=== PATIENT | female | born 1955 | race Caucasian/White ===

== ENCOUNTER → 2020-08-26 13:19 | Outpatient (CLI) | payer MEDICARE, OTHER, SELFPAY ==
[2020-08-26 14:16] LABS: COVID19 -Nasal RAPID Negative (Negative)
== END ==
PROVIDERS: PCP Specialist; Referring Provider Specialist; Visit Provider Specialist
DX: Z01.812 Encounter for preprocedural laboratory examination (principal); Z20.822 Contact with and (suspected) exposure to COVID-19
CPT/HCPCS: 87635

== ENCOUNTER 2020-08-27 06:30 | Day surgery (SDC) | payer MEDICARE, OTHER, SELFPAY ==
[2020-08-24 11:38] VITALS: BMI 23.8
[2020-08-27] VITALS (8 sets, daily range): BP systolic 113–129; BP diastolic 63–83; PULSE 59–78; RESP 10–20; TEMP 36.1–37; O2SAT 94–98; BMI 23.8
--- NOTE | 2020-08-27 | PATH_ITS ---
[facility] Accession Number: [id number] . 01 Material submitted: . endometrium - ENDOMETRIAL POLYP AND BIOPSY . 01 Clinical history: . SDC . 02 Diagnosis: Endometrial Polyp and Biopsy: Polypoid portions of endometrial tissue with features of cystic atrophy; negative for glandular hyperplasia, cytologic atypia, or malignancy. Portions of myometrial tissue; negative for atypia or malignancy. MRV 09/01/2020 1318 Local . 02 Electronically signed: . Stephani Cooper MD, Pathologist NPI- [id number] . 01 Gross description: . ENDOMETRIAL POLYP AND BIOPSY: Received in formalin are minute fragments of mucoid and hemorrhagic material measuring 2.0 x 1.4 x 0.3 cm in aggregate. Submitted in toto in 1 cassette. /KARO 08/28/2020 0708 Local . 02 Pathologist provided ICD-10: T83.721A, N95.0 . 02 CPT . 027089 Performed at: 01 [facility] [address], [place], [place] [id number] MD Beni Cooney MD Phone: [phone] Performed at: 02 [facility] [address] [place], [place] [id number] MD Lesley Riggs MD Phone: [phone]
[2020-08-27] MEDS: LACTATED RINGERS 1,000 ML 42 ML IV ×2 (06:59→08:56)
--- NOTE | 2020-08-27 07:20 | PM.PREOP ---
Pre-operative Note COVID-19 COVID-19 status: Negative Interval Note History & Physical reviewed/Exam performed by Physician: Yes Changes to H&P: No
--- NOTE | 2020-08-27 08:00 | SUR.OPER ---
Lithotomy on padded OR bed, head on pillow, arms secured on padded arm boards at <90 degrees abduction. Legs secured in padded yellow fins stirrups.
[2020-08-27] MEDS: CEFAZOLIN 1 GM VIAL 2 GM IV (08:14)
--- NOTE | 2020-08-27 08:30 | P.OP_ITS ---
Operative Date/Time/Diagnoses Date of procedure: 08/27/20 Time of procedure: 08:30 Pre-op diagnosis: Postmenopausal bleeding and erosion sling mesh in vagina Post-op diagnosis: same Procedure & Clinicians Procedure: Hysteroscopy with resection endometrial and endocervical polyp with endometrial curettage, removal eroded mesh and closing vaginal defect Same procedure as scheduled: Yes Indications: Postmenopausal bleeding, urethral sling mesh eroded into vagina Surgeon: Maricel Cruz Click Yes if Unassisted: Yes Anesthesia Type: General Operative Notes Findings: Normal exam under anesthesia with vaginal inclusion cysts in the right sidewall and fornix. Small area of urethral sling graft material exposed to the right midline. Endometrial polyp otherwise thin endometrium and small endocervi wilner polyp. Closure Type: primary Specimen(s): other (Endometrial polyp, endocervical polyp, endometrial curettings) Estimated Blood Loss (mL): 5 Blood products transfused: none Procedure in detail: The patient was brought to the operating room where she underwent general anesthesia. She was placed in low stirrups She was prepped and draped in usual sterile fashion with pulsatile stockings in place and functional, warming in place. 2 g of Ancef were given in of the case. Her bladder was drained with in and out catheter. A single-tooth tenaculum was placed on the anterior lip of the cervix and the uterus dilated to #8 Hegar dilator. The hysteroscope was placed into the uterus with a sorbitol solution running and under constant suction. The resecting loop set at 80 W of cutting was used to resect the polyp down to the level of the endometrium. A endometrial curettage was performed. An endocervical polyp was also removed with the resecting loop. The polyps and the endometrial curettage was sent to pathology. The sorbitol solution I=O approximately 500 mL. Next the exposed graft from her urethral sling procedure was removed with scissors. The vaginal tissue was freed from the remaining sling next to the exposure. The vaginal defect was closed with interrupted 2 0 Vicryl suture. Estimated blood loss less than 5 cc. Patient went to recovery room in good condition. Counts of instruments and sponges were correct. Complications: none Post-operative Condition: stable Disposition: same day surgery Plan for aftercare: Treatment and follow-up based on biopsy results.
[2020-08-27] MEDS: KETOROLAC 30 MG/ML VIAL IV (09:01)
== END 2020-08-27 09:25 | disposition home or self-care (01) ==
PROVIDERS: PCP Family Medicine; Referring Provider Specialist; Visit Provider Specialist
PROC: 0UDB8ZZ Extraction of Endometrium, Via Natural or Artificial Opening Endoscopic (ICD-10-PCS; CPT 58558; principal; 2020-08-27 07:45)
DX: N95.0 Postmenopausal bleeding (principal); T83.721A Exposure of implanted vaginal mesh into vagina, initial encounter; N89.8 Other specified noninflammatory disorders of vagina; N84.0 Polyp of corpus uteri; N84.1 Polyp of cervix uteri
CPT/HCPCS: 57295; 58558; J0690; J1100; J1885; J2405; J2704; J3010

== ENCOUNTER 2023-06-08 12:25 | Day surgery (SDC) | payer MEDICARE, OTHER, SELFPAY ==
--- NOTE | 2023-06-08 | PATH_ITS ---
[facility] Accession Number: [id number] No. of containers..01 Tissue . 01 Material submitted: . endometrium - ENDOMETRIAL CURETTING . 01 Diagnosis: ENDOMETRIUM, CURETTINGS: Sparse sample with strips of inactive glandular endometrium. Cervical tissue with reactive epithelial changes. No endometrioid intraepithelial neoplasia, cervical dysplasia or malignancy. MRV 06/14/2023 1413 Local . 01 Electronically signed: . Gladys Menendez MD, Pathologist NPI- [id number] . 01 Gross description: . ENDOMETRIAL CURETTING: Received in formalin are minute fragments of mucoid and hemorrhagic material measuring 1.0 x 1.0 x 0.2 cm in aggregate. Submitted in toto in 1 cassette. /AYALA 06/11/2023 1827 Local . 01 Pathologist provided ICD-10: N95.0 . 01 CPT . 222560 Specimen Comment: A courtesy copy of this report has been sent to [phone] Performed at: 01 [facility] [address] [place] [address], [place], [place] [id number] MD Beni Cooney MD Phone: [phone]
[2023-06-08 13:24] VITALS: BP 128/75; PULSE 76; RESP 16; TEMP 36.2; O2SAT 98; BMI 23.6
[2023-06-08 13:48] LABS: Hematocrit 41.6 % (36-46); Hemoglobin 14.1 g/dL (12.0-16.0); Mean Corpuscular HGB Conc 33.9 % (30-36); Mean Corpuscular Hemoglobin 29.7 PG (26-34); Mean Corpuscular Volume 87.5 fL (80-100); Platelet Count 207 X10^3/uL (150-400); Red Blood Cell Count 4.76 X10^6/uL (4.0-5.2); Red Cell Distribution Width 13.5 % (11.6-14.8); White Blood Cell Count 6.4 X10^3/uL (4.5-11.0)
[2023-06-08] MEDS: ACETAMINOPHEN IV 1,000 MG/100 ML VIAL 400 MG IV (13:58)
--- NOTE | 2023-06-08 14:34 | PM.PREOP ---
Pre-operative Note Interval Note History & Physical reviewed/Exam performed by Physician: Yes Changes to H&P: No
[2023-06-08 15:21] VITALS: BP 108/69; PULSE 71; RESP 15; TEMP 36.5; O2SAT 94
--- NOTE | 2023-06-08 15:23 | SUR.OPER ---
Lithotomy on padded OR bed, head on pillow, arms secured on padded arm boards at <90 degrees abduction. Legs secured in padded yellow fins stirrups.
--- NOTE | 2023-06-08 15:25 | PM.OP.1 ---
Operative Date/Time/Diagnoses Date of procedure: 06/08/23 Time of procedure: 15:25 Pre-op diagnosis: Postmenopausal bleeding Post-op diagnosis: same Procedure & Clinicians Procedure: Hysteroscopy D&C Same procedure as scheduled: Yes Indications: Postmenopausal bleeding Surgeon: Maricel Cruz Click Yes if Unassisted: Yes Anesthesia Type: Sedation Operative Notes Findings: Normal exam under anesthesia. Thin endometrium without any intrauterine pathology. Closure Type: not applicable Specimen(s): none sent (Uterine curettage) Estimated Blood Loss (mL): 5 Blood products transfused: none Procedure in detail: The patient was brought to the operating room where she underwent general anesthesia. She was placed in low stirrups She was prepped and draped in usual sterile fashion with pulsatile stockings in place and functional, warming in place . A single-tooth tenaculum was placed on the anterior lip of the cervix and the uterus dilated to #8 Hegar dilator. The hysteroscope was placed into the uterus with saline solution running. An endometrial curettage was performed. The endometrial curettage was sent to pathology. The patient went to recovery room in good condition counts of instruments and sponges were correct. Estimated blood loss less than 5 mL. Complications: none Post-operative Condition: stable Disposition: same day surgery Plan for aftercare: Home when awake and stable. Patient will be contacted with biopsy results.
[2023-06-08 15:26] VITALS: BP 113/74; PULSE 69; RESP 8; O2SAT 94
[2023-06-08 15:31] VITALS: BP 115/74; PULSE 67; RESP 18; O2SAT 95
[2023-06-08] MEDS: OXYCODONE IR 5 MG TABLET PO (15:35)
[2023-06-08 15:36] VITALS: BP 120/78; PULSE 74; RESP 15; O2SAT 96
[2023-06-08 15:41] VITALS: BP 120/78; PULSE 67; RESP 18; TEMP 36.6; O2SAT 97
== END 2023-06-08 16:00 | disposition home or self-care (01) ==
PROVIDERS: Student in an Organized Health Care Education/Training Program; PCP Family Medicine; Referring Provider Specialist; Visit Provider Specialist
PROC: 0UDB8ZZ Extraction of Endometrium, Via Natural or Artificial Opening Endoscopic (ICD-10-PCS; CPT 58558; principal; 2023-06-08 13:30)
DX: N95.0 Postmenopausal bleeding (principal); I48.91 Unspecified atrial fibrillation
CPT/HCPCS: 58558; 85027; 93005; 93010; J0136; J1100; J2405; J2704